=== PATIENT | male | born 1965 | race Caucasian/White ===

== ENCOUNTER 2025-02-02 17:29 | Emergency (ER) | payer OTHER, SELFPAY ==
[2025-02-02 17:31] VITALS: BP 155/97; PULSE 79; RESP 16; TEMP 36.8; O2SAT 95
--- NOTE | 2025-02-02 17:43 | ED.GENADUL_ITS ---
Discharge Plan Disposition Patient Disposition: Home Condition: Good Discharge Details Clinical Impression: Tick bite [facility] Provider: Russ Alaniz Home Meds and New Rx's Prescriptions: New doxycycline hyclate 100 mg tablet 100 mg PO BID Qty: 20 0RF No Action lisinopril 20 mg tablet 20 mg PO DAILY atorvastatin [Lipitor] 1 tab PO DAILY Discharge Instructions Instructions: Lyme disease Additional Instructions: At this time it is unclear whether it was a deer tick or dog tick. Out of an abundance of caution we will treat with doxycycline for the bite and rash. Please avoid dairy products while on this medication, it will make you sensitive to the sun, and you will have notable nausea and vomiting if you take it on an empty stomach. If you notice any worsening of your symptoms, or any new symptoms such as vomiting, diarrhea, fever, chills, shortness of breath, chest pain, numbness, weakness, or fainting , please return immediately to the emergency department for reevaluation. Please follow up with your primary care provider as soon as possible for reassessment and reevaluation. As always, it was a pleasure participating in your medical care today. HPI General Date/Time Provider Initiated Documentation: 02/02/25 17:41 . HPI Narrative: 59-year-old male with no significant past medical history presents today for evaluation of tick bite to his navel. He had an engorged tick on his bellybutton, he ripped it out, was concerned for the bite. He denies fever or chills. Uncertain as to what type was. No other complaints at this time. Related Data Home Medications ?Medication ?Instructions ?Recorded ?Confirmed atorvastatin 1 tab PO DAILY 02/02/2501/23 doxycycline hyclate 100 mg tablet 100 mg PO BID #20 ta bs 02/02/25 lisinopril 20 mg tablet 20 mg PO DAILY 02/02/2501/23 Previous Rx's ?Medication ?Instructions ?Recorded doxycycline hyclate 100 mg tablet 100 mg PO BID #20 ta bs 02/02/25 Allergies Allergy/AdvReac Type Severity Reaction Status Date / Time No Known Allergies Allergy Verified 02/02/25 17:36 General Stated Complaint: InsectBite DENNIS: 3 Exam Narrative Exam Narrative: 1.Const: Well-nourished, Well-developed, appearing stated age 2.Eyes: PERRL, no conjunctival injection, and symmetrical lids. 3.ENT: Atraumatic external nose and ears. Moist MM. Neck: Symmetric, trachea midline, No thyromegaly. 4.CVS: +S1/S2, Peripheral pulses 2+ and equal in all extremities. Brisk capillary refill in all extremities. 5.RESP: Unlabored respiratory effort. Clear to auscultation bilaterally. No wheezes rales or rhonchi 6.GI: Soft, Nontender/Nondistended, No hepatosplenomegaly. No guarding or rebound. 7.MSK: Normocephalic/Atraumatic, Extremities w/o deformity or ttp No cyanosis or clubbing, Normal movement of all extremities 8.Skin: Warm, Dry. No rashes or lesions. Mild redness around the umbilicus, which is a notably inny bellybutton. No evidence of bull's-eye lesion. No evidence of retained bodies of the tick. 9.Neuro: telemarketing manager II-XII grossly intact. Sensation grossly intact, no focal neurologic deficits. 10.Psych: (AAO) x3. Appropriate mood and affect Course Vital Signs Vital signs: Vital Signs Temperature 36.8 C 02/02/25 17:31 Pulse 79 02/02/25 17:31 Respiratory Rate 16 02/02/25 17:31 Blood Pressure 155/97 H 02/02/25 17:31 Pulse Oximetry 95 02/02/25 17:31 Temperature 36.8 C 02/02/25 17:31 Temperature Source Oral 02/02/25 17:31 Pulse 79 02/02/25 17:31 Respiratory Rate 16 02/02/25 17:31 Blood Pressure 155/97 H 02/02/25 17:31 Blood Pressure Position Sitting 02/02/25 17:31 Pulse Oximetry 95 02/02/25 17:31 Oxygen Delivery Method Room Air 02/02/25 17:31 Oxygen Flow Rate 0 02/02/25 17:31 Pain Level 0 02/02/25 17:31 Medical Decision Making 59-year-old male with no significant past medical history presents today for evaluation of tick bite to his navel. He had an engorged tick on his bellybutton, he ripped it out, was concerned for the bite. He denies fever or chills. Uncertain as to what type was. No other complaints at this time. Exam demonstrates a well-appearing male, erythema in the internal umbilicus, no bleeding or signs of retained bodies from the tick. Tick was notably engorged per patient and images. Concern for potential Lyme anaplasmosis or ehrlichiosis from the tick. Will give a course of doxycycline for treatment. Discussed red flags for which to return. I have extensively reviewed the treatment plan and discharge instructions with the patient and their family. I have addressed all patient concerns at this time. The patient and family was made aware of what symptoms to monitor for that would warrant a return to the emergency department. Discussed the plan with the patient and family, they demonstrate verbal understanding and agreement with our assessment and plan at this time. The documentation in this chart was dictated using [employer] dictation software. Please excuse any dictation errors. PFSH All Active Problems (Updated 02/02/25 @ 17:44 by Russ Alaniz DO) Tick bite (Acute) Social History Smoking/Tobacco Use Status: Current every day Tobacco Type: cigarettes Smoking risk assessment performed?: Yes Alcohol Intake: never Drug use: Never Substance use type: does not use Do you feel safe at home: Yes Do you feel safe in your relationship?: Yes
[2025-02-02] MEDS: Doxycycline Hyclate 100 MG, 2 CAPS/BTL PO (17:48)
== END 2025-02-02 17:48 | disposition home or self-care (01) ==
PROVIDERS: Emergency Provider Student in an Organized Health Care Education/Training Program
DX: S30.861A Insect bite (nonvenomous) of abdominal wall, initial encounter (principal); F17.210 Nicotine dependence, cigarettes, uncomplicated; W57.XXXA Bitten or stung by nonvenomous insect and other nonvenomous arthropods, initial encounter; Y93.89 Activity, other specified; Y92.89 Other specified places as the place of occurrence of the external cause
CPT/HCPCS: 99283